=== PATIENT | female | born 1965 ===

== ENCOUNTER 2021-03-20 05:50 | Day surgery (SDC) | payer OTHER ==
[2021-03-20] MEDS ORDERED: NEXIUM 24HR20 MG PO (09:20)
== END 2021-03-20 10:45 | disposition home or self-care (01) ==
LOC: AMB-ENDOS 05:50
PROVIDERS: ATTEND Surgery
DX: D13.1 Benign neoplasm of stomach (principal); K44.9 Diaphragmatic hernia without obstruction or gangrene; Z20.822 Contact with and (suspected) exposure to COVID-19